=== PATIENT | male | born 1975 | race Caucasian/White ===

== ENCOUNTER 2020-03-07 15:28 | Emergency (ER) | payer BC, MEDICAID ==
[~2020-03-07] VITALS: Ht 180.3 cm; Wt 74.4 kg
--- NOTE | 2020-03-07 15:35 | NUR ---
PT BIB SELF C/O CHEST PAIN RADIATING TO HIS L ARM, UPON ARRIVAL PT STATES THAT CP IS NOT BAD IT WAS BEFORE RATES IT 11/08. VS CHECKED. EKG BEING DONE, IV ACCESS STARTED ON L AC G18. BLOOD DRAW DONE. SENTVTO LAB. AWAITING MD YEUNG.
[2020-03-07] MEDS ORDERED: ASPIRIN 81 MG TAB.CHEW PO ONE (16:00)
[2020-03-07 16:05] LABS: BASOPHILS # (AUTO) 0.1 /CMM (0.0-0.2); BASOPHILS % (AUTO) 1.1 % (0.0-2.0); EOSINOPHILS % (AUTO) 1.1 % (0.0-6.0); HEMATOCRIT 46 % (39-51); HEMOGLOBIN 15.1 g/dL (13.5-17.5); LYMPHOCYTES # (AUTO) 3.5 /CMM (0.8-4.8); MEAN CORPUSCULAR HGB CONC 33 g/dl (31.0-36.0); MEAN CORPUSCULAR VOLUME 91 fL (80-96); MONOCYTES # (AUTO) 1.1 /CMM (0.1-1.30); MONOCYTES % (AUTO) 12.7 % (2.0-12.0); NEUTROPHILS # (AUTO) 3.6 /CMM (1.8-8.9); NEUTROPHILS % (AUTO) 43.1 % (43.0-81.0); PLATELET COUNT (AUTO) 278 /CMM (150-450); WHITE BLOOD COUNT (AUTO) 8.4 K/uL (4.3-11.0)
[2020-03-07] MEDS ORDERED: ASPIRIN 81 MG TAB.CHEW ONE (16:27)
[2020-03-07 16:30] LABS: CALCIUM, SERUM 9.7 mg/dL (8.5-10.1); CARBON DIOXIDE 28 mmol/L (21-32); CHLORIDE 102 mmol/L (98-107); CREATININE 0.9 mg/dL (0.6-1.3); GLUCOSE 87 mg/dL (74-106); SODIUM SERUM 139 mmol/L (136-145); UREA NITROGEN, BLOOD 13 mg/dL (7-18)
[2020-03-07] MEDS ORDERED: ACETAMINOPHEN ES 500 MG TABLET ONE (17:23)
[2020-03-07] MEDS ORDERED: IOHEXOL-350 100 ML VIAL IV ONE ×2 (17:24→17:38)
[2020-03-07] MEDS ORDERED: CT SWABBABLE VALVE TRANS SET 1 EA INFUS.SET MC ONE (17:24)
[2020-03-07] MEDS ORDERED: IV NS 0.9% 250 ML IV ONE ×2 (17:24→17:40)
[2020-03-07] MEDS ORDERED: ACETAMINOPHEN ES 500 MG TABLET PO ONE (17:30)
--- NOTE | 2020-03-07 17:30 | NUR ---
PT BACK FROM [facility]
--- NOTE | 2020-03-07 19:21 | NUR ---
PATIENT IS AAOX4. NO SOB. BREATHING EVENLY AND UNLABROED ON ROOM AIR. CONNECTED TO THE MONITOR. PAITENT CURRENTLY AWAITING TROPONIN RESULTS.
--- NOTE | 2020-03-07 19:29 | NUR ---
PATIENT IS WAITING FOR COVID RESULTS. MD IS AWARE
--- NOTE | 2020-03-07 19:36 | NUR ---
RECEIVED RESULTS FROM LAB THAT PATIENT IS COVID NEGATIVE.
[2020-03-07 19:59] VITALS: BP 126/82
--- NOTE | 2020-03-07 19:59 | NUR ---
Patient discharged to home in stable condition. Written and verbal after care instructions given. Patient verbalizes understanding of instruction.IV removed. Catheter intact and site benign. Pressure and 4x4 applied to site. No bleeding noted. Pt ambulatory with a steady gait
== END 2020-03-07 20:00 | disposition home or self-care (01) ==
LOC: ER 15:35
DX: R07.89 Other chest pain (principal); M25.512 Pain in left shoulder; Z20.828 Contact with and (suspected) exposure to other viral communicable diseases; K76.0 Fatty (change of) liver, not elsewhere classified
CPT/HCPCS: 36415; 71045; 71275; 80048; 84484 ×2; 85025; 85378; 87426; 93005 ×2; 99285; C9803; J7050 ×2; Q9967 ×2